=== PATIENT | male | born 1990 | race African-American/Black ===

== ENCOUNTER 2022-02-14 23:45 | Emergency (ER) | payer SELFPAY ==
[~2022-02-14] VITALS: Ht 198.1 cm; Wt 103.8 kg
[2022-02-15 00:21] VITALS: BP 106/43
[2022-02-15] MEDS ORDERED: HYDROCODONE/ACETAMINOPHEN 5/325MG TABLET PO ONE (00:45)
[2022-02-15] MEDS ORDERED: IBUP-2030 MT (01:26)
== END 2022-02-15 02:18 | disposition home or self-care (01) ==
LOC: ER 23:45
DX: S20.212A Contusion of left front wall of thorax, initial encounter (principal); X58.XXXA Exposure to other specified factors, initial encounter; Y93.89 Activity, other specified; Y92.89 Other specified places as the place of occurrence of the external cause; Y99.8 Other external cause status
CPT/HCPCS: 71101; 99283